=== PATIENT | male | born 1975 | race African-American/Black ===

== ENCOUNTER 2018-03-03 18:00 | Emergency (ER) | payer MEDICAID, OTHER ==
[2018-03-03 18:10] VITALS: BP 137/85
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
== END 2018-03-03 18:30 | disposition home or self-care (01) ==
LOC: UCEAST 18:00
DX: S56.511A Strain of other extensor muscle, fascia and tendon at forearm level, right arm, initial encounter (principal); X58.XXXA Exposure to other specified factors, initial encounter; Y93.9 Activity, unspecified; Y99.9 Unspecified external cause status; F17.210 Nicotine dependence, cigarettes, uncomplicated
CPT/HCPCS: 99213; G0463